=== PATIENT | female | born 1935 | race Caucasian/White ===

== ENCOUNTER 2025-02-13 10:32 | Day surgery (SDC) | payer MEDICARE, OTHER, SELFPAY ==
[2025-02-03 10:25] VITALS: BMI 20.5
[2025-02-13] VITALS (18 sets, daily range): BP systolic 114–159; BP diastolic 33–96
[2025-02-13 14:17] LABS: ACT-LR - POC 295 Seconds (116-155)
[2025-02-13 14:48] LABS: ACT-LR - POC 290 Seconds (116-155)
--- NOTE | 2025-02-13 15:18 | ITS.CL.ABL ---
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
Ablation
Procedure Report:
ELECTROPHYSIOLOGY ABLATION STUDY
DATE:: February 13, 2025�����������������������������REFERRING: Dr. Michi Sands
INDICATION: Persistent supraventricular tachycardia in the form of atrial fibrillation.��Prior pulmonary vein isolation procedure
HISTORY: See H and P.��As above
ANTIARRHYTHMIC DRUG: Amiodarone
PRE-PROCEDURE JAMIE: No intracardiac thrombus
PRESENTING RHYTHM: A-fib
'TIME-OUT':��called and confirmed.
SEDATION/ANESTHESIA:��provided via the anesthesia department using general anesthesia (LMA).
INTRAVENOUS/ARTERIAL ACCESS:
Right femoral venous 8Fr
Left femoral venous - 8 Fr, 6 Fr
Left femoral arterial - 5 Fr
Ultrasound guidance for bilateral femoral vein access was utilized by me to obtain access with demonstration of normal anatomy
CHADS-VASC Score:
HAS-Bled Score
PROCEDURE:
1.��A decapolar CS catheter was placed within the CS for mapping and pacing.��This was also used as the reference catheter for the 3-D map. 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 This was seen at
preablation imaging before first procedure. She has no clinical sequela related to the elevated right hemidiaphragm per patient.
2. The intracardiac ultrasound catheter was positioned in the RA to identify the FO for targeting of transseptal puncture, assist��in identification of the pulmonary vein ostia, monitoring pre and post ablation pulmonary vein flow velocities,
monitoring for 'bubble' formation during RF application as a sign of thermal injury,��and to monitor for pericardial effusion during mapping and ablation procedure.���Left atrial size, LV ejection fraction, and pulmonary vein flows were monitored
pre and post ablation procedure. The other valves were inspected and found to be free of significant regurgitation or stenosis.
3.��Half of the calculated heparin bolus was administered prior to the first transeptal puncture.��Transseptal puncture was performed to diagnose RA and LA pressure so that safety of LA mapping and ablation could be further assessed, and to access
the left atrium and pulmonary veins for mapping and ablation.��This entailed advancing an 10 Nepalese steerable sheath with dilator into the superior vena cava and withdrawing both (monitoring intracardiac ultrasound, fluoroscopy and tip pressure)
with the tip oriented toward the atrial septum.��The fossa ovalis was engaged (indicated by sudden displacement of the sheath tip as well as tenting of the fossa seen on intracardiac ultrasound).��Left atrial access required a pass with the
Brockenbrough needle extended.��Left atrial catheter position was confirmed by pressure monitoring (RA mean pressure 8 mm Hg and LA mean presure 14 mm Hg), LA saturation (99%),��as well as fluoroscopy.��The sheath was advanced over the dilator and
positioned in the left atrium.����The remainder of the calculated heparin bolus was administered and heparin was
infused to maintain ACT at 300 -350 seconds throughout the case.
4.��RA pacing was performed via the proximal decapolar poles and LA pacing was performed via the distal decapolr poles.
5. A quadrapolar catheter was first positioned at the His position for His Bundle recording which was tagged via the 3-D Navex sytem, and then passed to the RVA for RV pacing and recording.
6. The lattice catheter was placed in each of the LIPV, LSPV, RSPV and the RIPV.��
7.��Next, a 3-D map was created using Navex.���A 3-D reconstructed CT image was compared to the 3-D Navex map to assist in anatomic interpretation, mapping and ablation.��The CT image and the NavX image were fused.
8. The pulmonary veins were isolated at baseline. Pulmonary vein lesions were given in the right ru and all given to Che[place] during this procedure.
There was signal just outside the right pulmonary veins along the septum and PFA lesions were given from this interatrial septal region into the right ru. Posterior wall box lesion set was given in the ligament of Chepe and floor of the
posterior wall was also ablated with pulsed field ablation. After ablation and cardioversion to sinus rhythm after 200 J synchronized biphasic shock entrance and exit block was confirmed in all 4 pulmonary veins as well as the roof floor and
posterior wall of the left atrium.
9. Patient was noted to have hemodynamically tolerable bradycardia after cardioversion with resting heart rates in the mid to high 30s. We will lower her amiodarone with plan to discontinue.
TOTAL FLOURO TIME: 18.6 minutes
TOTAL RF DURATION: 0 minutes
REVERSAL OF HEPARIN: 40 mg of protamine, slow IV administration
COMPLICATIONS:
None
Intracardiac US shows no pericardial effusion post ablation.
SUMMARY:��
Complex left atrial mapping and ablation.
Pulmonary vein lesions were delivered to the right ru. The pulmonary vein were isolated at baseline. Extrapulmonary vein substrate was ablated with pulsed field ablation and the interatrial septum floor posterior wall with a box lesion set
roof and ligament of Chepe region. This rendered the pulmonary veins and the roof floor and posterior wall of the left atrium isolated.
RECOMMENDATIONS:
1. Admit to monitored bed.��
2. Resume anticoagulation
3.��Lower amiodarone to 100 mg daily and discontinue in 1 month
4.��Anticipate discharge on February 14, 2025
Copy to: Dr. Michi Sands
[2025-02-13] MEDS: LASIX 40 MG IV (15:54)
[2025-02-13] MEDS: ANESTHETIC LOZENGE 1 LOZENGE PO (16:29)
--- NOTE | 2025-02-13 17:18 | PTCARENOTE ---
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 Pt denies pain. O2 on at 2L/min.
[2025-02-13] MEDS: LIPITOR 10 MG PO (18:08)
[2025-02-13] MEDS: ALDACTONE 25 MG PO (18:08)
[2025-02-13] MEDS: SYNTHROID 37.5 MCG PO (18:08)
[2025-02-13] MEDS: DEMADEX 20 MG PO (18:08)
[2025-02-13] MEDS: XARELTO 15 MG PO (20:48)
[2025-02-13] MEDS: KCL 20 MEQ PO (20:48)
[2025-02-13] MEDS: DIOVAN 40 MG PO (20:48)
--- NOTE | 2025-02-13 22:10 | PTCARENOTE ---
patient urinated 450 into the bedside commode. bladder appeared distended. patient denied any discomfort. bladder scan >1000 ml. assisted patient to the bathroom-small amount of unmeasured urine. post void bladder scan- 930cc. updated Javier GUEVARA.
order for straight cath placed. straight cath x1 for 950cc clear, yellow urine. tolerated. patient states feeling relief.
b/l groins intact. sutures clipped with no issues. + doppler pulses. HR appears to be SB/SR and SA 50s-60s. bp stable. patient tolerated being oob-denies any lightheadedness/dizziness. call guido within each. educated patient to inform RN with any
new changes.
[2025-02-13] MEDS: NEURONTIN 100 MG PO (22:55)
[2025-02-13] MEDS: ATIVAN 0.5 MG PO (22:55)
[2025-02-14 03:06] VITALS: BP 132/54
[2025-02-14 04:30] LABS: Hematocrit 33.2 % (37.0-47.0); Hemoglobin 10.9 g/dL (12.0-16.0); Mean Corp Hgb Conc. 32.8 g/dL (33.0-37.0); Mean Corpuscular Volume 88.3 fL (81.0-99.0); Mean Platelet Volume 9.1 fL (7.4-10.4); Platelet Count 193 10^3/uL (130-400); Red Blood Cell Count 3.76 10^6/uL (4.20-5.40); Red Cell Dist. Width 17.4 % (11.5-14.5); White Blood Cell Count 6.9 10^3/uL (4.8-10.8)
[2025-02-14 04:59] LABS: Blood Urea Nitrogen 37 mg/dl (7-17); Carbon Dioxide 31 mmol/L (22-30); Chloride 94 mmol/L (98-107); Estimated Creatinine Clearance 19 ml/min; Glucose 82 mg/dl (70-99); Magnesium 1.7 mg/dl (1.6-2.3); Potassium 3.9 mmol/L (3.5-5.1); Sodium 132 mmol/L (135-145); eGFR 31.02
--- NOTE | 2025-02-14 05:13 | PTCARENOTE ---
at 0400, patient urinated 300 cc yellow urine. post void bladder scan 550. patient denies any discomfort. updated Maureen GUEVARA. will give patient another hour to attempt to urinate.
[2025-02-14 07:28] VITALS: BP 150/51
[2025-02-14] MEDS: PACERONE 100 MG PO (08:45)
[2025-02-14] MEDS: KCL 20 MEQ PO (08:45)
[2025-02-14] MEDS: DEMADEX 20 MG PO (08:45)
[2025-02-14] MEDS: COREG 6.25 MG PO (08:45)
[2025-02-14] MEDS: DIOVAN 40 MG PO (08:46)
--- NOTE | 2025-02-14 09:18 | W.PN.CARDCBS ---
Addendum entered and electronically signed by Jean Dubon MD 02/14/25 09:30:
patient seen and examined
agree with UNDER GROUND MINER note and assessment
agree with UNDER GROUND MINER plan
awaiting void
SB/SR on tele with occasional couplets/triplets
awake and alert
exam:
aao x 3
non focal neurologically
cor regular no m
lungs ctab
abd soft nt nd
Impression:
Symptomatic persistent Afib with prior PVI x2
post redo PVI 02/13/25
urinary retention post procedure
CAD/PCI LAD 2011
HTN
HLD
Hypothyroidism
CKD 3b
Chronic HFrEF - recovered
Breast cancer post mastectomy
DDD/Spinal stenosis
chronic LE Lymphedema
Plan:
post ablation having urinary retention requiring straight cath x 2
groins stable
tele SB with PAC's
Continue OAC Xarelto 15mg
Decrease Amiodarone 100mg daily, then stop in 1 month
Decrease carvedilol to 6.25mg bid with bradycardia
OOB ambulate
Activity restrictions reviewed
Will f/u Dr. Sands in 1 mo
poss d/c home later today is voiding w/o high PVR, she may have some baseline retention
Original Note:
Today's Communication / Plan
-
post ablation continue OAC
Decrease amio and carvedilol
st cath this am, await void an will assess PVR
home later today if voiding
Impression / Plan
-
PCP: Ibeth Marie,
CDY: Austin Sands MD
Impression:
Symptomatic persistent Afib with prior PVI x2
post redo PVI 02/13/25
urinary retention post procedure
CAD/PCI LAD 2011
HTN
HLD
Hypothyroidism
CKD 3b
Chronic HFrEF - recovered
Breast cancer post mastectomy
DDD/Spinal stenosis
chronic LE Lymphedema
Plan:
post ablation having urinary retention requiring straight cath x 2
groins stable
tele SB with PAC's
Continue OAC Xarelto 15mg
Decrease Amiodarone 100mg daily, then stop in 1 month
Decrease carvedilol to 6.25mg bid with bradycardia
OOB ambulate
Activity restrictions reviewed
Will f/u Dr. Sands in 1 mo
poss d/c home later today is voiding w/o high PVR, she may have some baseline retention
SUMMARY:��
Complex left atrial mapping and ablation.
Pulmonary vein lesions were delivered to the right ru. The pulmonary vein were isolated at baseline. Extrapulmonary vein substrate was ablated with pulsed field ablation and the interatrial septum floor posterior wall with a box lesion set
roof and ligament of Chepe region. This rendered the pulmonary veins and the roof floor and posterior wall of the left atrium isolated.
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
Subjective
Date of Service: February 14, 2025
denies cp, sob
Objective
Labs:
02/14/25 04:04
02/14/25 04:04
Labs
Hgb 10.9 g/dL (12.0-16.0) L 02/14/25 04:04
Hct 33.2 % (37.0-47.0) L 02/14/25 04:04
Plt Count 193 10^3/uL (130-400) 02/14/25 04:04
Sodium 132 mmol/L (135-145) L 02/14/25 04:04
Potassium 3.9 mmol/L (3.5-5.1) 02/14/25 04:04
BUN 37 mg/dl (7-17) H 02/14/25 04:04
Creatinine 1.6 mg/dL (0.6-1.0) H 02/14/25 04:04
Glucose 82 mg/dl (70-99) 02/14/25 04:04
Vital Signs and I&O:
Vital Signs
Temp Pulse Resp BP Pulse Ox
98.0 F 52 18 150/51 99
02/14/25 07:28 02/14/25 08:46 02/14/25 07:28 02/14/25 08:46 02/14/25 07:28
Vital Signs
Temp Pulse Resp BP Pulse Ox
98.0 F 52 18 150/51 99
02/14/25 07:28 02/14/25 08:46 02/14/25 07:28 02/14/25 08:46 02/14/25 07:28
Intake & Output
02/12/25 02/13/25 02/14/25 02/15/25
06:59 06:59 06:59 06:59
Intake Total 1999 / 1999
Output Total 2900 / 2900
Balance -900 / -900
Physical Exam
Physical Exam
NAD, AOX3
S1, S2, RRR
fine bibasilar crackles, non labored
SNTND bsx4
b/l groins c/d/i no HT, soft
--- NOTE | 2025-02-14 10:37 | CM ---
Chart reviewed. Patient is independent of ADLS, lives alone in a 2 [address], 1st floor set up, 3 [address], 0 DME. Patient's son lives next door. Plan is for the patient to return home. CM to follow
[2025-02-14 11:44] VITALS: BP 97/64
--- NOTE | 2025-02-14 12:48 | W.DS.TRANS ---
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
-
Discharge Instructions:
Discharge Diagnosis/Procedures Atrial fibrillation post ablation
Diet Low Cholesterol
Driving Restrictions No driving for 24 hours
Instructions:
Stand-Alone Forms: DC Instructions- Cath/EP Lab
Changes to Home Medications: Yes
Discharge Medications:
DC Medications w/original date entered in [employer]
torsemide 20 mg tablet 20 mg PO BID 07/22/13
rivaroxaban 15 mg tablet (Xarelto) 15 mg PO QPM ##90 12/20/17
atorvastatin 10 mg tablet 10 mg PO Q48H 01/28/25
gabapentin 100 mg capsule 100 mg PO HS 01/28/25
hydrocodone 7.5 mg-acetaminophen 325 mg tablet 1 tab PO PRN PRN pain 01/28/25
levothyroxine 25 mcg tablet (Synthroid) 37.5 mcg PO QPM 01/28/25
lorazepam 1 mg tablet 0.5 mg PO HSPRN PRN sleep 01/28/25
potassium chloride 20 mEq tablet,extended release 20 meq PO BID 01/28/25
spironolactone 25 mg tablet 25 mg PO QPM 01/28/25
valsartan 40 mg tablet 40 mg PO BID 01/28/25
amiodarone 100 mg tablet (Pacerone) 100 mg PO DAILY #1 tab 02/14/25
carvedilol 6.25 mg tablet 6.25 mg PO BID #1 tab 02/14/25
Home Medication Changes
decrease amio 100mg, decrease carvedilol 6.25
Pending Results: No
--- NOTE | 2025-02-14 14:23 | PTCARENOTE ---
pt voided 300 yellow urine, bladder scanned pt from 337. notified jeramy harrison. pt is sr hr in the 70s, vss. pt offers no complaints at this time. call guido within reach.
--- NOTE | 2025-02-14 15:40 | PTCARENOTE ---
D/d instructions read to pt and pt verbalized understanding. iv and tele removed. pt left with belongings from room and d/c instructions. pt left via wheelchair with staff member.
== END 2025-02-14 14:15 | disposition home or self-care (01) ==
LOC: CATH 10:32
PROVIDERS: Nurse Practitioner Adult Health; ATTENDING PHYSICIAN Internal Medicine Cardiovascular Disease; FAMILY PHYSICIAN Internal Medicine; OTHER PHYSICIAN Internal Medicine Cardiovascular Disease
DX: I48.19 Other persistent atrial fibrillation (principal); I13.0 Hypertensive heart and chronic kidney disease with heart failure and stage 1 through stage 4 chronic kidney disease, or unspecified chronic kidney disease; I50.9 Heart failure, unspecified; N18.32 Chronic kidney disease, stage 3b; E78.5 Hyperlipidemia, unspecified; E03.9 Hypothyroidism, unspecified; I73.00 Raynaud's syndrome without gangrene; M48.00 Spinal stenosis, site unspecified; G89.29 Other chronic pain; Z90.12 Acquired absence of left breast and nipple; Z85.3 Personal history of malignant neoplasm of breast; G47.00 Insomnia, unspecified; Z79.899 Other long term (current) drug therapy; Z79.01 Long term (current) use of anticoagulants; I25.10 Atherosclerotic heart disease of native coronary artery without angina pectoris; Z95.5 Presence of coronary angioplasty implant and graft; Z79.890 Hormone replacement therapy; I48.92 Unspecified atrial flutter; I89.0 Lymphedema, not elsewhere classified; Z88.0 Allergy status to penicillin; Z90.49 Acquired absence of other specified parts of digestive tract; Z98.890 Other specified postprocedural states
CPT/HCPCS: C1730; C1894; C1766; C1892; C1759; C1733; 80048; 83735; 85027; 85347; 93005; 93656; 93657